=== PATIENT | female | born 1980 | race Two or more races ===

== ENCOUNTER 2020-08-09 14:23 | Outpatient (CLI) | payer OTHER ==
[~2020-08-09 14:23] MED LIST: PERCOCET 5/3251 TAB PO
== END 2020-08-09 14:43 | disposition home or self-care (01) ==
LOC: MRI 14:23
DX: D49.512 Neoplasm of unspecified behavior of left kidney (principal)

== ENCOUNTER 2020-08-12 07:53 | Outpatient (CLI) | payer OTHER | END 2020-08-12 09:29 | disposition home or self-care (01) | LOC: MRI 07:53 | DX: R10.2 Pelvic and perineal pain (principal); R25.2 Cramp and spasm; N83.202 Unspecified ovarian cyst, left side | CPT/HCPCS: 72197 ==

== ENCOUNTER 2020-09-30 10:30 | Inpatient (IN) | payer OTHER ==
[~2020-09-30] VITALS: Ht 160 cm; Wt 77.1 kg
[2020-09-30] MEDS ORDERED: TAPAZOLE10 MG PO (14:36)
[2020-10-07] MEDS ORDERED: ULTRACET PO (08:46)
== END 2020-10-07 09:27 | disposition home or self-care (01) | DRG 743 ==
LOC: O/R 10-03 06:17 → SURH 10-03 10:30 → PED 10-03 18:55 → SURH 10-03 19:30 → OB/GYN 10-04 16:31
PROVIDERS: ADMIT Obstetrics & Gynecology; ATTEND Obstetrics & Gynecology
PROC: 0UT60ZZ Resection of Left Fallopian Tube, Open Approach (ICD-10-PCS; 2020-10-03)
PROC: 0UT10ZZ Resection of Left Ovary, Open Approach (ICD-10-PCS; 2020-10-03)
PROC: 0DNU0ZZ Release Omentum, Open Approach (ICD-10-PCS; 2020-10-03)
PROC: 0TJB8ZZ Inspection of Bladder, Via Natural or Artificial Opening Endoscopic (ICD-10-PCS; 2020-10-03)
PROC: 0UT90ZZ Resection of Uterus, Open Approach (ICD-10-PCS; principal; 2020-10-03 19:30)
DX: D25.2 Subserosal leiomyoma of uterus (principal); N80.0 Endometriosis of uterus; D27.1 Benign neoplasm of left ovary; Z20.828 Contact with and (suspected) exposure to other viral communicable diseases